=== PATIENT | female | born 1930 | race Caucasian/White ===

== ENCOUNTER 2019-02-26 20:16 | Inpatient (IN) | payer OTHER, MEDICARE ==
[~2019-02-26] VITALS: Ht 162.6 cm; Wt 83.5 kg
[2019-02-26 20:16] VITALS: BP_SYST 159
[~2019-02-26 20:16] MED LIST: BUPIVACAINE /PF 0.25% 30 ML VIAL INJ ONE; LR 1,000 ML IV.SOLN IV ONE; MIDAZOLAM HCL 5 MG/5 ML VIAL IVP ONE; NS IRRIG SOLN 1000 ML IR ONE; PROPOFOL 200MG/ 20ML VIAL (DIPRIVAN) IV ONE
[2019-02-26] MEDS ORDERED: ACET-2165 PO (20:43)
[2019-02-26] MEDS ORDERED: CLOB50FO8 TP (20:45)
[2019-02-26] MEDS ORDERED: DOCU-144 PO (20:49)
[2019-02-26 21:12] LABS: BASOPHILS % (AUTO) 0.7 % (0.0-2.0); EOSINOPHILS # (AUTO) 0.2 K/uL (0.0-0.4); EOSINOPHILS % (AUTO) 2.3 % (0.0-4.0); HEMATOCRIT 32.1 % (36-48); HEMOGLOBIN 10.5 g/dL (12.0-16.0); LYMPHOCYTES # (AUTO) 2.2 K/uL (1.0-5.5); LYMPHOCYTES % (AUTO) 31.8 % (20.5-51.5); MEAN CORPUSCULAR HEMOGLOBIN 28 pg (27-31); MEAN CORPUSCULAR HGB CONC 33 % (32-36); MEAN CORPUSCULAR VOLUME 85 fL (79.0-98.0); MONOCYTES # (AUTO) 0.5 K/uL (0.0-1.0); MONOCYTES % (AUTO) 7.7 % (1.7-9.3); NEUTROPHILS # (AUTO) 3.9 K/uL (1.8-7.7); NEUTROPHILS % (AUTO) 57.5 % (40.0-70.0); PLATELET COUNT (AUTO) 238 K/uL (130-430); RED BLOOD CELL COUNT(AUTO) 3.78 MIL/uL (4.2-6.2); WHITE BLOOD COUNT (AUTO) 6.8 K/uL (4.8-10.8)
[2019-02-26] MEDS ORDERED: FAMO20TA8 PO (21:15)
[2019-02-26] MEDS ORDERED: INSU100V9 SQ (21:16)
[2019-02-26] MEDS ORDERED: DAPA5TAB PO (21:16)
[2019-02-26 21:18] LABS: ANION GAP 8 (5-15); CALCIUM 9.1 mg/dL (8.4-11.0); CHLORIDE 103 mmol/L (98-107); CREATININE 1.37 mg/dL (0.55-1.30); GLUCOSE 328 mg/dL (70-99); POTASSIUM 4.4 mmol/L (3.5-5.1); SODIUM SERUM 136 mmol/L (136-145); UREA NITROGEN, BLOOD 45 mg/dL (8-21)
[2019-02-26] MEDS ORDERED: LOPE2CAP PO (21:19)
[2019-02-26] MEDS ORDERED: LORA-258 PO (21:19)
[2019-02-26] MEDS ORDERED: LOSA50TA3 PO (21:20)
[2019-02-26] MEDS ORDERED: LYR50 PO (21:20)
[2019-02-26] MEDS ORDERED: MOM PO (21:21)
[2019-02-26 21:23] LABS: ALANINE AMINOTRANSFERASE 37 U/L (12-78); ALBUMIN 3.2 g/dL (3.4-4.8); ASPARTATE AMINOTRANSFERASE 14 U/L (10-37); TOTAL BILIRUBIN 0.2 mg/dL (0.0-1.0)
[2019-02-26] MEDS ORDERED: MULT-300 PO (21:23)
[2019-02-26] MEDS ORDERED: POLY17PO4 PO (21:23)
[2019-02-26] MEDS ORDERED: NIFE30TA84 PO (21:24)
[2019-02-26] MEDS ORDERED: LINA5TAB2 PO (21:25)
[2019-02-26] MEDS ORDERED: VITA113. TP (21:26)
[2019-02-26] MEDS ORDERED: RIVA15TA PO (21:27)
[2019-02-26] MEDS ORDERED: CETI10CA PO (21:27)
[2019-02-26] MEDS ORDERED: AZEL6DRO5 EACH EYE (21:28)
[2019-02-26] MEDS ORDERED: SSREG SUBCUT (21:29)
[2019-02-26] MEDS ORDERED: MILK OF MAGNESIA 30 ML UDC PO PRN (22:45)
[2019-02-26] MEDS ORDERED: LORazepam 1 MG TABLET PO PRN (22:45)
[2019-02-26] MEDS ORDERED: ACETAMINOPHEN 325 MG TABLET PO PRN (22:45)
[2019-02-26] MEDS ORDERED: DEXTROSE 50% JECT 50 ML DISP.SYRIN IVP PRN (22:45)
[2019-02-26 23:00] VITALS: BP_SYST 137
[2019-02-26] MEDS ORDERED: PANTOPRAZOLE SODIUM 40 MG/VIAL (PROTONIX) IVP SCH (23:00)
[2019-02-26 23:16] VITALS: BP_SYST 137
[2019-02-26] MEDS: NACL 0.9% 1,000 ML IV SCH (23:40)
[2019-02-27 01:45] VITALS: BP_SYST 140
[2019-02-27 05:19] LABS: BASOPHILS % (AUTO) 0.6 % (0.0-2.0); EOSINOPHILS # (AUTO) 0.1 K/uL (0.0-0.4); HEMATOCRIT 29.3 % (36-48); HEMOGLOBIN 9.4 g/dL (12.0-16.0); LYMPHOCYTES # (AUTO) 2.6 K/uL (1.0-5.5); LYMPHOCYTES % (AUTO) 35.2 % (20.5-51.5); MEAN CORPUSCULAR HEMOGLOBIN 28 pg (27-31); MEAN CORPUSCULAR HGB CONC 32 % (32-36); MEAN CORPUSCULAR VOLUME 85 fL (79.0-98.0); MONOCYTES # (AUTO) 0.6 K/uL (0.0-1.0); NEUTROPHILS % (AUTO) 54.2 % (40.0-70.0); PLATELET COUNT (AUTO) 230 K/uL (130-430); RED BLOOD CELL COUNT(AUTO) 3.43 MIL/uL (4.2-6.2); RED CELL DISTRIBUTION WIDTH 15.4 % (9.0-15.0); WHITE BLOOD COUNT (AUTO) 7.4 K/uL (4.8-10.8)
[2019-02-27 05:44] LABS: ANION GAP 8 (5-15); CALCIUM 8.6 mg/dL (8.4-11.0); CHLORIDE 105 mmol/L (98-107); CREATININE 1.24 mg/dL (0.55-1.30); GLUCOSE 232 mg/dL (70-99); POTASSIUM 4.1 mmol/L (3.5-5.1); SODIUM SERUM 139 mmol/L (136-145); UREA NITROGEN, BLOOD 42 mg/dL (8-21)
[2019-02-27 05:46] LABS: INR 1.2 (0.8-1.2); PROTHROMBIN TIME 11.9 SECS (9.5-12.5)
[2019-02-27] MEDS: INSULIN REGULAR, HUMAN 100 UNITS/ML, 10 ML VIAL (novoLIN R) SUBCUT PRN ×4 (06:13→21:29)
[2019-02-27] MEDS: PANTOPRAZOLE SODIUM 40 MG/VIAL (PROTONIX) IVP SCH ×2 (08:26→21:17)
[2019-02-27] MEDS: PREGABALIN 25 MG CAPSULE (LYRICA) PO SCH ×2 (08:26→21:16)
[2019-02-27] MEDS: POLYETHYLENE GLYCOL 3350, 17 GM/ POWD.PACK PO SCH (08:26)
[2019-02-27] MEDS: DOCUSATE SODIUM 100 MG CAPSULE PO SCH ×2 (08:27→21:16)
[2019-02-27] MEDS: MULTIVITS,CA,MINERALS/IRON/FA 1 TABLET PO SCH (08:27)
[2019-02-27] MEDS: LOSARTAN POTASSIUM 50 MG TABLET (COZAAR) PO SCH (08:27)
[2019-02-27 08:38] VITALS: BP_SYST 159
[2019-02-27] MEDS ORDERED: FAMOTIDINE 20 MG TABLET PO SCH (09:00)
[2019-02-27] MEDS ORDERED: NON-FORMULARY MEDICATION (Azelastine Hcl 1 DROP) EACH EYE SCH (09:00)
[2019-02-27] MEDS ORDERED: NIFEDIPINE 30 MG TAB.ER.24 PO SCH (09:00)
[2019-02-27] MEDS: NACL 0.9% 1,000 ML IV SCH ×2 (09:40→21:15)
[2019-02-27 12:41] VITALS: BP_SYST 139
[2019-02-27 12:57] LABS: TOTAL IRON BIND. CAPACITY 215 ug/dL (250-450)
[2019-02-27 16:53] LABS: BILIRUBIN,URINE NEGATIVE (NEGATIVE); BLOOD, URINE 1+ (NEGATIVE); CLARITY/URINE CLOUDY (CLEAR); COLOR,URINE YELLOW (YELLOW); GLUCOSE,URINE 3+ (NEGATIVE); KETONES,URINE NEGATIVE (NEGATIVE); LEUKOCYTE ESTERASE ,URINE 3+ (NEGATIVE); NITRITE, URINE POSITIVE (NEGATIVE); PH,URINE 5.5 (5.0-8.0); PROTEIN URINE TRACE (NEGATIVE); UROBILINOGEN,URINE 0.2 (0.2-1.0)
[2019-02-27 17:15] LABS: BACTERIA,URINE MANY /HPF (None Seen); MUCUS,URINE None Seen /LPF (None Seen); RBC,URINE 0-3 /HPF (0-3); WBC,URINE >100 /HPF (0-3)
[2019-02-27 17:32] VITALS: BP_SYST 158
[2019-02-27] MEDS ORDERED: cefTRIAXone 1 GM VIAL ONE (18:43)
[2019-02-27] MEDS: cefTRIAXone 1 GM in D5W 50 ML IV SCH (18:45)
[2019-02-27 20:00] VITALS: BP_SYST 136
[2019-02-27] MEDS: CLOBETASOL PROPIONATE 0.05%, 60 GM CREAM TP SCH (21:17)
[2019-02-28 00:54] VITALS: BP_SYST 150
[2019-02-28] MEDS: NACL 0.9% 1,000 ML IV SCH ×2 (06:05→14:59)
[2019-02-28] MEDS: INSULIN REGULAR, HUMAN 100 UNITS/ML, 10 ML VIAL (novoLIN R) SUBCUT PRN ×4 (06:11→20:18)
[2019-02-28 06:16] LABS: BASOPHILS % (AUTO) 0.4 % (0.0-2.0); EOSINOPHILS # (AUTO) 0.1 K/uL (0.0-0.4); HEMATOCRIT 27.7 % (36-48); LYMPHOCYTES # (AUTO) 2.1 K/uL (1.0-5.5); LYMPHOCYTES % (AUTO) 30.3 % (20.5-51.5); MEAN CORPUSCULAR HEMOGLOBIN 28 pg (27-31); MEAN CORPUSCULAR HGB CONC 32 % (32-36); MEAN CORPUSCULAR VOLUME 85 fL (79.0-98.0); MONOCYTES # (AUTO) 0.5 K/uL (0.0-1.0); MONOCYTES % (AUTO) 7.5 % (1.7-9.3); NEUTROPHILS # (AUTO) 4.1 K/uL (1.8-7.7); NEUTROPHILS % (AUTO) 59.8 % (40.0-70.0); PLATELET COUNT (AUTO) 211 K/uL (130-430); RED BLOOD CELL COUNT(AUTO) 3.25 MIL/uL (4.2-6.2); WHITE BLOOD COUNT (AUTO) 6.9 K/uL (4.8-10.8)
[2019-02-28 06:22] LABS: ANION GAP 10 (5-15); CALCIUM 7.9 mg/dL (8.4-11.0); CHLORIDE 108 mmol/L (98-107); CREATININE 1.13 mg/dL (0.55-1.30); GLUCOSE 201 mg/dL (70-99); POTASSIUM 4.2 mmol/L (3.5-5.1); SODIUM SERUM 142 mmol/L (136-145); UREA NITROGEN, BLOOD 29 mg/dL (8-21)
[2019-02-28 07:31] VITALS: BP_SYST 151
[2019-02-28] MEDS ORDERED: ONDANSETRON HCL 4 MG/2 ML VIAL IVP PRN (08:45)
[2019-02-28] MEDS ORDERED: fentaNYL CITRATE/PF 100 MCG/2 ML AMP IVP PRN ×2 (08:45)
[2019-02-28] MEDS: DOCUSATE SODIUM 100 MG CAPSULE PO SCH ×2 (09:00→20:05)
[2019-02-28] MEDS: POLYETHYLENE GLYCOL 3350, 17 GM/ POWD.PACK PO SCH (09:00)
[2019-02-28] MEDS: PANTOPRAZOLE SODIUM 40 MG/VIAL (PROTONIX) IVP SCH ×2 (10:05→20:05)
[2019-02-28] MEDS: NIFEDIPINE 30 MG TAB.ER.24 PO SCH (10:06)
[2019-02-28] MEDS: MULTIVITS,CA,MINERALS/IRON/FA 1 TABLET PO SCH (10:06)
[2019-02-28] MEDS: PREGABALIN 25 MG CAPSULE (LYRICA) PO SCH ×2 (10:06→20:05)
[2019-02-28] MEDS: LOSARTAN POTASSIUM 50 MG TABLET (COZAAR) PO SCH (10:10)
[2019-02-28] MEDS ORDERED: cloNIDine HCL 0.1 MG TABLET PO PRN (10:45)
[2019-02-28 11:04] VITALS: BP_SYST 130
[2019-02-28 12:02] VITALS: BP_SYST 175
[2019-02-28] MEDS ORDERED: MAGNESIUM CITRATE 300 ML ORAL SOLUTION PO ONE (14:15)
[2019-02-28] MEDS ORDERED: MINERAL OIL 30 ML UDC PO ONE (14:15)
[2019-02-28] MEDS ORDERED: CIPROFLOXACIN HCL 500 MG TABLET PO ONE (14:15)
[2019-02-28] MEDS ORDERED: BISACODYL 10 MG/SUPPOSITORY RC PRN (14:45)
[2019-02-28 16:02] VITALS: BP_SYST 125
[2019-02-28] MEDS: cefTRIAXone 1 GM in D5W 50 ML IV SCH (18:06)
[2019-02-28 20:00] VITALS: BP_SYST 115
[2019-02-28] MEDS: CLOBETASOL PROPIONATE 0.05%, 60 GM CREAM TP SCH (20:08)
[2019-02-28] MEDS: CIPROFLOXACIN HCL 500 MG TABLET PO SCH (21:41)
[2019-03-01] MEDS: NACL 0.9% 1,000 ML IV SCH (00:25)
[2019-03-01 00:31] VITALS: BP_SYST 130
[2019-03-01] MEDS: INSULIN REGULAR, HUMAN 100 UNITS/ML, 10 ML VIAL (novoLIN R) SUBCUT PRN ×3 (06:11→17:05)
[2019-03-01 06:42] LABS: ANION GAP 8 (5-15); CALCIUM 8.1 mg/dL (8.4-11.0); CHLORIDE 108 mmol/L (98-107); CREATININE 1.15 mg/dL (0.55-1.30); GLUCOSE 224 mg/dL (70-99); POTASSIUM 4.1 mmol/L (3.5-5.1); SODIUM SERUM 139 mmol/L (136-145); UREA NITROGEN, BLOOD 24 mg/dL (8-21)
[2019-03-01 06:55] LABS: BASOPHILS % (AUTO) 0.3 % (0.0-2.0); EOSINOPHILS # (AUTO) 0.1 K/uL (0.0-0.4); EOSINOPHILS % (AUTO) 1.9 % (0.0-4.0); HEMATOCRIT 27.8 % (36-48); HEMOGLOBIN 9.1 g/dL (12.0-16.0); LYMPHOCYTES # (AUTO) 2.5 K/uL (1.0-5.5); LYMPHOCYTES % (AUTO) 33.5 % (20.5-51.5); MEAN CORPUSCULAR HEMOGLOBIN 28 pg (27-31); MEAN CORPUSCULAR HGB CONC 33 % (32-36); MEAN CORPUSCULAR VOLUME 85 fL (79.0-98.0); MONOCYTES # (AUTO) 0.5 K/uL (0.0-1.0); MONOCYTES % (AUTO) 6.8 % (1.7-9.3); NEUTROPHILS # (AUTO) 4.2 K/uL (1.8-7.7); NEUTROPHILS % (AUTO) 57.5 % (40.0-70.0); PLATELET COUNT (AUTO) 213 K/uL (130-430); RED BLOOD CELL COUNT(AUTO) 3.29 MIL/uL (4.2-6.2); RED CELL DISTRIBUTION WIDTH 15.3 % (9.0-15.0); WHITE BLOOD COUNT (AUTO) 7.3 K/uL (4.8-10.8)
[2019-03-01 08:02] VITALS: BP_SYST 131
[2019-03-01] MEDS: MULTIVITS,CA,MINERALS/IRON/FA 1 TABLET PO SCH (09:14)
[2019-03-01] MEDS: PREGABALIN 25 MG CAPSULE (LYRICA) PO SCH (09:14)
[2019-03-01] MEDS: PANTOPRAZOLE SODIUM 40 MG/VIAL (PROTONIX) IVP SCH (09:14)
[2019-03-01] MEDS: POLYETHYLENE GLYCOL 3350, 17 GM/ POWD.PACK PO SCH (09:14)
[2019-03-01] MEDS: CIPROFLOXACIN HCL 500 MG TABLET PO SCH (09:15)
[2019-03-01] MEDS: LOSARTAN POTASSIUM 50 MG TABLET (COZAAR) PO SCH (09:15)
[2019-03-01] MEDS: DOCUSATE SODIUM 100 MG CAPSULE PO SCH (09:15)
[2019-03-01] MEDS: NIFEDIPINE 30 MG TAB.ER.24 PO SCH (09:15)
[2019-03-01 12:16] VITALS: BP_SYST 127
[2019-03-01 16:31] VITALS: BP_SYST 122
[2019-03-01] MEDS: cefTRIAXone 1 GM in D5W 50 ML IV SCH (18:11)
[2019-03-01 18:34] VITALS: BP_SYST 122
== END 2019-03-01 19:10 | DRG 982 ==
LOC: SED 20:16 → STU 22:08 → SMU 02-27 18:11
PROVIDERS: ADMIT Internal Medicine; ATTEND Internal Medicine
PROC: 0UBMXZZ Excision of Vulva, External Approach (ICD-10-PCS; principal; 2019-02-28 08:00)
DX: D49.59 Neoplasm of unspecified behavior of other genitourinary organ (principal); K92.2 Gastrointestinal hemorrhage, unspecified; N39.0 Urinary tract infection, site not specified; N17.9 Acute kidney failure, unspecified; G45.9 Transient cerebral ischemic attack, unspecified; N93.8 Other specified abnormal uterine and vaginal bleeding; N90.89 Other specified noninflammatory disorders of vulva and perineum; E11.51 Type 2 diabetes mellitus with diabetic peripheral angiopathy without gangrene; E66.9 Obesity, unspecified; I10 Essential (primary) hypertension; E11.40 Type 2 diabetes mellitus with diabetic neuropathy, unspecified; D64.9 Anemia, unspecified; E78.5 Hyperlipidemia, unspecified; Z89.512 Acquired absence of left leg below knee; Z88.8 Allergy status to other drugs, medicaments and biological substances; Z79.899 Other long term (current) drug therapy; Z79.01 Long term (current) use of anticoagulants; Z86.73 Personal history of transient ischemic attack (TIA), and cerebral infarction without residual deficits; Z86.718 Personal history of other venous thrombosis and embolism; Z79.4 Long term (current) use of insulin; Z68.31 Body mass index [BMI] 31.0-31.9, adult
CPT/HCPCS: 36415; 70450-TC; 71045; 76856-TC; 80048; 80053; 81000-TC; 82962; 83540-TC; 83550-TC; 85025; 85610-TC; 85730-TC; 86886; 86900; 86901; 87081; 88305; 93005; 99285; C9113; G0378; J0696; J1815; J2250; J2704; J3490; J7030; J7060; J7120